=== PATIENT | male | born 1995 | race Two or more races ===

== ENCOUNTER 2019-11-22 18:15 | Emergency (ER) | payer OTHER ==
[~2019-11-22] VITALS: Ht 172.7 cm; Wt 94.8 kg
[~2019-11-22 18:15] MED LIST: CODACE30 PO
== END 2019-11-22 19:52 | disposition home or self-care (01) ==
LOC: ER 18:15
DX: S00.05XA Superficial foreign body of scalp, initial encounter (principal); W26.8XXA Contact with other sharp object(s), not elsewhere classified, initial encounter
CPT/HCPCS: 10120; 90471; 90714; 99282-25